=== PATIENT | female | born 1960 | race Caucasian/White ===

== ENCOUNTER 2018-02-03 00:11 | Emergency (ER) | payer BC, SELFPAY ==
[2018-02-03 00:13] VITALS: BP 126/70; PULSE 70; RESP 36; TEMP 37; O2SAT 100; BMI 25.3
[2018-02-03 00:15] VITALS: O2SAT 100
[2018-02-03] MEDS: Albuterol 2.5 MG/3 ML VIAL.NEB. INHALATION (00:32)
[2018-02-03 00:33] VITALS: PULSE 66; RESP 16
[2018-02-03] MEDS: DiphenhydrAMINE 50 MG/ML Syringe 25 MG IV (00:46)
[2018-02-03] MEDS: MethylPREDNISolone 125 MG/2 ML Vial IV (00:46)
[2018-02-03] MEDS: LORazepam 2 MG/ML Syringe 0.5 MG IV (00:46)
--- NOTE | 2018-02-03 01:22 | ED.VISSUMM ---
- ER Visit Summary Date of Service: 02/03/18 Chief Complaint: [] Shortness of breath, seasonal allergies History of Present Illness: The patient is a 57 F [] complaining of acute shortness of breath secondary to seasonal allergies. Patient reports she frequently takes Kassie-D for seasonal allergies. She reports this year has been particularly difficult with her seasonal allergies. She reports drinking wine today which worsened her allergy symptoms. She is dyspneic during history and physical exam. She also appears slightly anxious. Denies chest pain. No other complaints at this time. Physical Examination: [] Afebrile, vital signs stable. Cardia vascular exam is regular rate and rhythm. Lungs are clear to auscultation. Abdomen is soft and nontender. Test Results: [] None. Emergency Department Course and Treatment: [] Patient received intravenous fluids, Ativan, Benadryl, Solu-Medrol. Patient received 1 albuterol aerosol treatment. On serial exam she had significant improvement of her symptoms. She was encouraged to discontinue alcohol consumption during her seasonal allergy peak time of the year. Treatment Plan: [] Follow-up with PCP. Disposition: [] Discharge, stable. Impression: [] Seasonal allergies Dyspnea This note was generated with LinguaLeo dictation software. It may contain incorrect words, spelling, and punctuation that were not noted in review of the chart prior to signing ED Disposition - Plan for ED Patient: Chief Complaint: Shortness of Breath Referrals: Facundo Quinones MD [Primary Care Provider] -
--- NOTE | 2018-02-03 01:25 | ED.DEP ---
ED Disposition - Plan for ED Patient: Disposition: Home or Assisted Living Chief Complaint: Shortness of Breath Instructions: ED Reactive Airway Disease, ED Allergy Seasonal Referrals: Facundo Quinones MD [Primary Care Provider] -
[2018-02-03 01:31] VITALS: BP 119/74; PULSE 72; RESP 18; O2SAT 95
--- NOTE | 2018-02-03 01:32 | ED.RN ---
IV DC'ED, CATHETER INTACT, SMALL GAUZE DRESSING PLACED. DISCHARGE INSTRUCTIONS GIVEN TO AND REVIEWED WITH PATIENT, PATIENT DENIES QUESTIONS OR CONCERNS AND VOICES UNDERSTANDING OF DISCHARGE INSTRUCTIONS. PT AMBULATES OUT OF ROOM WITHOUT DIFFICULTY.
== END 2018-02-03 01:33 | disposition home or self-care (01) ==
PROVIDERS: Emergency Provider Emergency Medicine; Family Provider Family Medicine; PCP Family Medicine
DX: J30.2 Other seasonal allergic rhinitis (principal); R06.00 Dyspnea, unspecified
CPT/HCPCS: 94640; 96361; 96374; 96375; 99282; J7040; A4216

== ENCOUNTER 2022-07-03 17:19 | Emergency (ER) | payer BC, SELFPAY ==
[2022-07-03 17:20] VITALS: BP 107/71; PULSE 78; RESP 16; TEMP 36.9; O2SAT 99; BMI 23.8
--- NOTE | 2022-07-03 18:16 | EX.ED.VIS.EY ---
HPI History of Present Illness Chief Complaint: Eye Problem Narrative Narrative: 61-year-old female presenting with right sided cheek pain and pain above her right eye on her upper eyelid. She states this started yesterday. She went to her primary care physician to have this evaluated and she was sent to the emergency room. She says that her vision seemed a little bit off in the right eye. She does not have significant pain in her eye. She is noted no tearing or redness. She states her eye does feel irritated mildly and she has been trying not to rub her eye and does not believe she has. She is a noncontact wearer. No trauma to the eye that she knows of. [facility] Medical History Arthritis Hay fever Knee pain Severe headache Shoulder pain Home Medications erythromycin 5 mg/gram (0.5 %) eye ointment 1 applic RIGHT EYE TID #3.5 grams 07/03/22 [Rx Last Taken Unknown] fexofenadine 60 mg-pseudoephedrine ER 120 mg tablet,ext.release,12 hr (Kassie-D 12 Hour) 1 tab PO DAILY 07/03/22 [History Last Taken Unknown] Allergy/AdvReac Type Severity Reaction Status Date / Time acetaminophen [From Percocet] Allergy Mild Unknown Verified 07/03/22 17:19 estrogens, conjugated Allergy Mild Unknown Verified 07/03/22 17:19 naproxen [From Aleve] Allergy Mild Unknown Verified 07/03/22 17:19 oxycodone [From Percocet] Allergy Mild Unknown Verified 07/03/22 17:19 pseudoephedrine Allergy Mild Unknown Verified 07/03/22 17:19 [From Sudafed] Surgical History History of hysterectomy Hx of tubal ligation Social History Smoking Status: Former smoker ROS ROS ED Eyes Eyes: Reports blurry vision right ENT ENT ED: Denies rhinorrhea or sore throat Cardiovascular Cardiovascular: Denies chest pain or palpitations Respiratory/Chest Respiratory/Chest: Denies cough or dyspnea Gastrointestinal Gastrointestinal: Denies abdominal pain or constipation Genitourinary Genitourinary ED: Denies dysuria or hematuria Musculoskeletal Musculoskeletal: Denies arthralgias or back pain Integumentary Denies abscess or Abrasions Neurologic Neurologic: Denies headache(s) or paresthesias Psychiatric Psychiatric: Denies anxiety or depression EXAM Physical Exam Const Vital Signs: 07/03/22 17:20 Temperature 98.4 F Temperature Source Temporal Pulse Rate 78 Respiratory Rate 16 Blood Pressure 107/71 Blood Pressure Mean 83 Pulse Ox 99 Oxygen Delivery Method Room Air Positive well nourished General Appearance ED: NAD HEENT atraumatic Eyes PERRL and EOMs intact bilaterally General Eye ED: Yes normal appearance of both eyes and normal light reflex Eyelid: eyelids abnormal right upper eyelid Conjunctiva: conjunctiva normal Sclera: sclera normal Cornea: cornea abnormal Positive for right Cornea - Right Eye: Positive for abrasion and fluorescein used Pupil: PERRL Neck no lymphadenopathy Resp normal respiratory effort Cardio regular rate and regular rhythm GI non-tender Neuro oriented x3, CN's II-XII intact bilaterally and moves all extremities Sensorium / Orientation: alert and oriented to person Motor Exam: strength 5/5 throughout Skin no wounds MDM MDM MDM Narrative Medical decision making narrative: 61-year-old female presenting with right upper eyelid swelling and right cheek swelling. She states that its mostly tender in the right cheek. She states her vision is a little bit off in the right eye. She has a doctor's appointment for eye exam in 2 weeks which is scheduled. She states he saw her primary care provider who sent her to the emergency room out of concern that she might have an infection behind her eye. She has normal extraocular motion and no pain with motion. She does not have any redness of the eye, drainage, crusting of the eyelids. The cheek is mildly tender. The swelling over the eyelid on the upper on the right is nontender. Patient was examined with tetracaine for seen under slit-lamp. There is a corneal abrasion extending over the inferior aspect of the cornea from the 3:00 to the 8 o'clock position. Does not cover the midline. Visual acuities 20/25 OD, 20/25 OS. Patient was treated for corneal abrasion with erythromycin ophthalmic. She states she has appointment with her college or university faculty member upcoming. Return precautions were discussed. Impression: 1. Corneal abrasion 2. Right upper eyelid swelling 3. Right lower eyelid swelling Lab Data Attestation: I reviewed the patient's lab results. Discharge Plan Triage Chief Complaint: Eye Problem ED Provider: Braulio Doshi Dx/Rx/DC Orders Instructions: ED Corneal Abrasion Prescriptions: New erythromycin 5 mg/gram (0.5 %) ointment 1 applic RIGHT EYE TID Qty: 3.5 0RF No Action fexofenadine-pseudoephedrine [Kassie-D 12 Hour] 60-120 mg tablet extended release 12 hr 1 tab PO DAILY Label Comments: TAKE 1 TABLET BY MOUTH DAILY Primary Care Provider: Facundo Quinones Referrals: Facundo Quinones MD [Primary Care Provider] - Disposition Disposition: Home, Self Care
[2022-07-03] MEDS: Erythromycin Base 1 OPTH.TUBE 1 APPLIC RIGHT EYE (19:53)
[2022-07-03] MEDS: Fluorescein 1 MG STRIP 1 STRIP RIGHT EYE (19:54)
[2022-07-03] MEDS: Tetracaine 0.5% Ophthalmic Bottle 1 DRP RIGHT EYE (19:54)
== END 2022-07-03 19:54 | disposition home or self-care (01) ==
PROVIDERS: Emergency Provider Student in an Organized Health Care Education/Training Program; PCP Family Medicine; Visit Provider Student in an Organized Health Care Education/Training Program
DX: S05.01XA Injury of conjunctiva and corneal abrasion without foreign body, right eye, initial encounter (principal); H57.11 Ocular pain, right eye; H53.8 Other visual disturbances; Z87.891 Personal history of nicotine dependence; X58.XXXA Exposure to other specified factors, initial encounter
CPT/HCPCS: 99283

== ENCOUNTER 2024-03-14 14:03 | Emergency (ER) | payer BC, SELFPAY ==
[2024-03-14 14:03] VITALS: BP 126/63; PULSE 67; RESP 16; TEMP 35.6; O2SAT 98
--- NOTE | 2024-03-14 14:27 | EKG12_ITS ---
Test Reason : DIZZY Blood Pressure : / mmHG Vent. Rate : 059 BPM Atrial Rate : 000 BPM P-R Int : 000 ms QRS Dur : 078 ms QT Int : 448 ms P-R-T Axes : 000 075 037 degrees QTc Int : 443 ms Sinus bradycardia Nonspecific ST and T wave abnormality Abnormal ECG Confirmed by PINKY LEON, SANTO ([id number]), web editor PRISCILLA ROBERTS ([id number]) on 03/19/2024 10:49:02 A M Referred By: Confirmed By:MARIIA VANCE MD
--- NOTE | 2024-03-14 14:31 | CT_ITS ---
INDICATION: dizziness EXAMINATION: CT BRAIN - CT Head or Brain W/O Contrast Injection TECHNIQUE: Multiple axial images were obtained of the head without intravenous contrast. The protocol utilizes one or more of the following dose reduction techniques: automated exposure control, adjustment of mA and/or kV according to patient size,and/or use of iterative reconstruction technique. IV Contrast dosage and agent: None. RADIATION DOSAGE (If Supplied By Facility): CTDIvol = ( 44.99 ) mGy, DLP = ( 812.98 ) mGycm COMPARISON: No relevant prior comparison study available FINDINGS: BRAIN PARENCHYMA: No intra- or extra-axial hemorrhage. No evidence of acute infarct. No intracranial mass or mass effect. There is preservation of the mario/white matter interface. Posterior fossa structures are unremarkable. CSF SPACES: Appropriate for age. No hydrocephalus. Basal cisterns are patent. CALVARIUM, SKULL BASE, PARANASAL SINUSES AND MASTOID AIR CELLS: Clear. No discrete lytic or blastic abnormalities. ORBITS: Both globes, extraocular muscles, optic nerves and retrobulbar fat appear unremarkable. ASPECTS Score for Acute Strokes: 10 CT/Brain/Head without Contrast IMPRESSION: No acute intracranial process. Electronically Signed: Rosa Ragsdale MD at 15:32 EDT ,
--- NOTE | 2024-03-14 14:34 | EDS_ITS ---
HPI <LUPE Martinez - Last Filed: 03/14/24 18:13> History of Present Illness Chief Complaint: Nausea/Vomiting/Diarrhea Narrative Narrative: Patient is a 63-year-old female with no significant medical history who presents to the emergency department for 1 day of dizziness, feeling like her head is swirling, nausea and vomiting and feeling unsteady when she is getting around. Patient states she has had multiple episodes of vomiting. She is having pain to her back and chest from the vomiting. She does not understand why she cannot open her eyes, this is never happened to her before. She denies any fever or chills. Denies any blood in her vomit or stool. Here with her for evaluation. PFSH <LUPE Martinez - Last Filed: 03/14/24 18:13> [facility] Medical History Arthritis Hay fever Knee pain Severe headache Shoulder pain Home Medications ?Medication ?Instructions ?Recorded ?Last Taken ?Type fexofenadine 60 mg-pseudoephedrine 1 tab PO DAILY 07/03/22 Unknown History ER 120 mg tablet,ext.release,12 hr (Kassie-D 12 Hour) diazepam 5 mg tablet (Valium) 5 mg PO TID PRN sedation #10 tabs 03/14/24 Unknown Rx ondansetron 4 mg disintegrating 4 mg PO Q8H PRN PRN Nausea #10 tabs 03/14/24 Unknown Rx tablet ondansetron 4 mg disintegrating 4 mg PO Q8H PRN PRN Nausea #10 tabs 03/14/24 Unknown Rx tablet Allergy/AdvReac Type Severity Reaction Status Date / Time acetaminophen (From Percocet) Allergy Mild Unknown Verified 03/14/24 14:06 estrogens, conjugated Allergy Mild Unknown Verified 03/14/24 14:06 naproxen (From Aleve) Allergy Mild Unknown Verified 03/14/24 14:06 oxycodone (From Percocet) Allergy Mild Unknown Verified 03/14/24 14:06 pseudoephedrine (From Allergy Mild Unknown Verified 03/14/24 14:06 Sudafed) Surgical History History of hysterectomy Hx of tubal ligation Social History Smoking Status: Former smoker ROS <Alban IraHUI saenz-C - Last Filed: 03/14/24 18:13> ROS ED ROS Narrative Constitutional: Negative for fever, chills, weight loss, weakness Eyes: Negative for vision loss, vision change, double vision ENT: Negative for any sore throat, ear pain, congestion Cardiovascular: Negative for any chest pain, tightness, palpitations Respiratory: Negative for any cough, sputum production, hemoptysis, dyspnea, dyspnea on exertion, orthopnea Gastrointestinal: Negative for any abdominal pain, diarrhea, constipation, blood in stool, blood in vomit. Positive for nausea and vomiting : Negative for any urinary frequency, dysuria, retention, blood in urine Muscle skeletal: Negative for any neck pain, back pain Neurological: Negative for any headache, syncope. Positive for dizziness Skin: Negative for any rashes, itching, abrasions, lacerations Psychiatric: Negative for any depression, anxiety, stress, suicidal ideation, homicidal ideation Hematologic: Negative for any excessive bruising, easy bleeding EXAM <LUPE Martinez - Last Filed: 03/14/24 18:13> Physical Exam Narrative Exam Narrative: Vital signs reviewed. HEET: Head normocephalic atraumatic, TMs clear bilaterally. Posterior pharynx is clear, moist mucous membranes. Nares clear bilaterally. Pupils are equal round reactive to light. Patient does have obvious nystagmus bilateral. Patient barely able to tolerate moving her eyes right and left. Neck: Supple with no lymphadenopathy or tenderness. No signs of meningismus. Cardiac: Regular rate and rhythm no murmurs gallops or rubs, equal peripheral pulses bilaterally. Respiratory: Lungs clear to auscultation bilaterally. No chest tenderness. Abdomen: Soft, nontender, nondistended. No abdominal bruit or pulsatile masses. No hepatosplenomegaly Extremities: No peripheral edema, no signs of gross trauma or deformity. Active full range of motion of all extremities. Neuro: Cranial nerves II through XII intact, no focal neurological deficits. Horizontal nystagmus, patient is improved with laying flat, eyes closed. NIH stroke scale 0. Skin: Clean dry and intact with no rash, purpura, petechiae, vesicles or pustules. Backs/flank: No CVA tenderness, no midline spinal tenderness, no deformity. Psych: Normal mood and affect. No SI, HI or acute psychosis. Const Vital Signs: 03/14/24 14:03 03/14/24 16:03 03/14/24 18:08 Temperature 96.1 F L 97.6 F L Temperature Source Temporal Oral Pulse Rate 67 58 L 72 Respiratory Rate 16 16 16 Blood Pressure 126/63 H 173/74 H 124/76 H Blood Pressure Mean 84 107 92 Pulse Ox 98 98 98 Oxygen Delivery Method Room Air Room Air Room Air 03/14/24 18:25 Temperature 97.5 F L Temperature Source Pulse Rate 82 Respiratory Rate 16 Blood Pressure 134/69 H Blood Pressure Mean 90 Pulse Ox 99 Oxygen Delivery Method <Dr. Rufus Cassidy DO - Last Filed: 03/14/24 18:32> Physical Exam Const Vital Signs: 03/14/24 14:03 03/14/24 16:03 03/14/24 18:08 Temperature 96.1 F L 97.6 F L Temperature Source Temporal Oral Pulse Rate 67 58 L 72 Respiratory Rate 16 16 16 Blood Pressure 126/63 H 173/74 H 124/76 H Blood Pressure Mean 84 107 92 Pulse Ox 98 98 98 Oxygen Delivery Method Room Air Room Air Room Air 03/14/24 18:25 Temperature 97.5 F L Temperature Source Pulse Rate 82 Respiratory Rate 16 Blood Pressure 134/69 H Blood Pressure Mean 90 Pulse Ox 99 Oxygen Delivery Method [facility] <LUPE Martinez - Last Filed: 03/14/24 18:13> [facility] Lab Data Labs: Laboratory Results - last 24 hr 03/14/24 14:23 WBC 11.3 H RBC 4.88 Hgb 15.0 Hct 44.8 MCV 91.8 MCH 30.7 MCHC 33.5 RDW Std Deviation 48.0 H RDW Coeff of Obed 14.3 Plt Count 383 MPV 10.0 Immature Gran % (Auto) 0.400 Neut % (Auto) 70.9 H Lymph % (Auto) 22.2 [place] % (Auto) 6.0 Eos % (Auto) 0.1 Baso % (Auto) 0.4 Absolute Neuts (auto) 8.1 H Absolute Lymphs (auto) 2.51 Nucleated RBC % 0 Sodium 136 Potassium 3.6 Chloride 105 Carbon Dioxide 24.0 Anion Gap 7 BUN 10 Creatinine 0.74 Est GFR (MDRD) Af Amer 102 Est GFR (MDRD) Non-Af 84 BUN/Creatinine Ratio 13.6 Glucose 124 H Calcium 10.3 H Total Bilirubin 0.60 AST 27 ALT 33 Alkaline Phosphatase 68 Total Protein 8.4 H Albumin 4.4 Globulin 4.0 Albumin/Globulin Ratio 1.1 Lipase 64 Radiography Diagnostic Testing: Clinical Impression(s) from Imaging Studies Brain CT 03/14/24 14:31 IMPRESSION: No acute intracranial process. Electronically Signed: Rosa Ragsdale MD at 15:32 EDT , EKG Sinus bradycardia: Attestation: I personally reviewed and interpreted this EKG as follows: Interpretation: Sinus Rhythm Comments: Sinus bradycardia, rate of 59 bpm, no ST elevation. Treatment and Re-Evaluation :: Differential diagnosis includes however is not limited to: Central vertigo, positional peripheral vertigo, CVA, intracranial bleeding Patient appears to be in mild distress secondary to vertigo, dizziness, room spinning like sensation. Vital signs are stable, patient nontoxic-appearing. Patient presents to the emergency department for worsening dizziness, nausea and vomiting. Patient will receive a CT scan of brain for intracranial hemorrhage, mass effect. Patient received basic laboratory values, EKG. Patient received IV fluids, Zofran, oral Valium. Patient will need to be reevaluated. All radiologic examinations were read, reviewed by the emergency department attending. From these reads, a plan of care will be put in place. Patient's CBC showed a slight leukocytosis white blood count 11.3, patient's chemistries show glucose of 124, lipase was negative. Patient CT scan of the brain showed no acute intracranial process. Patient reevaluation was feeling better, she is able to open her eyes, she states that her nausea was improved. She still felt slightly dizzy. Patient will need to get up and ambulate to see how she does. Patient who was redosed with 2.5 mg of Valium. Patient rested for another 45 minutes to 1 hour. On reevaluation, the patient is able to sit up, ambulatory, patient feels much improved. I did speak with the patient regarding admission however the patient does feel confident that she can go home, and she will return here for any worsening symptoms. Patient will be given Valium for home as well as Zofran. She will follow-up outpatient. Instructed to return here for any worsening symptoms. Patient stable for discharge. <Dr. Rufus Cassidy, DO - Last Filed: 03/14/24 18:32> [facility] Narrative Medical decision making narrative: I have personally performed a face to face assessment of the patient and have reviewed the THALIA Note. I performed a substantive portion of the visit including all aspects of the following. My feliz findings include: History: Patient presents with dizziness, nausea, vomiting that began yesterday. Patient states it began rather suddenly. Patient states it has been constant since yesterday. Patient states she feels off balance. Patient states she feels like the floor is moving. Patient states she feels like her head is sp inning. Patient states it is worse when she sits up and better when she lays down. Patient denies any hearing changes or tinnitus. Patient does admit to mild headache. Patient denies any hematemesis or coffee-ground emesis. Patient denies any diarrhea. Exam: Vital signs are stable. Patient is afebrile. Patient is in no acute distress. Pupils are equal, round, and reactive to light bilaterally. Extraocular muscles are intact. There is nystagmus with left lateral gaze. Oral mucosa is pink and moist. Neck is supple. Trachea midline. There is no JVD. Heart was regular rate and rhythm. Lungs are clear and equal bilaterally. Abdomen is soft. Bowel sounds are normal. There is no tenderness. Cranial nerves II through XII are intact. Strength is 5/5 bilaterally in the upper and lower extremities. There are no sensory deficits noted. Vipul-Hallpike maneuver was positive. Medical Decision Making: Differential diagnosis includes vertigo, labyrinthitis, intracranial bleeding, stroke, electrolyte abnormality, dehydration, and viral illness. CBC will be obtained to assess for leukocytosis and anemia. Comprehensive metabolic profile will be obtained to assess for hepatic function, renal function, and electrolyte abnormality. Lipase will be obtained to assess for pancreatitis. CT scan of the brain will be obtained to assess for intracranial bleeding and stroke. EKG will be obtained to assess for cardiac dysrhythmia and cardiac ischemia. Patient was given a dose of Zofran here. Patient was given a dose of Valium. Patient was given IV fluids. Patient was feeling somewhat better on reevaluation. Patient was given a repeat dose of Valium and Zofran. CBC was reviewed. There is a slight leukocytosis of 11.3. The remainder is within normal limits. Comprehensive metabolic profile was reviewed and was essentially within normal limits. Lipase was reviewed and was normal at 64. EKG was obtained. On my independent interpretation, it shows a sinus bradycardia with a rate of 59. [place] interval, QRS interval, and QTc intervals are within normal limits. [place] was normal. There are nonspecific ST-T wave changes. This was unchanged compared to previous EKG. CT scan of the brain was obtained. There is no acute intracranial abnormality. This was interpreted by the radiologist and was also independently reviewed by myself. Patient was feeling better on reevaluation. Patient was able to stand and ambulate. Patient was instructed to follow-up with her primary care physician in 5 to 7 days. Patient is given a prescription for evaluation. Patient was instructed to return if worse in any way. Patient understood and was agreeable with plan. All questions were answered. Lab Data Attestation: I reviewed the patient's lab results. Labs: Laboratory Results - last 24 hr 03/14/24 14:23 WBC 11.3 H RBC 4.88 Hgb 15.0 Hct 44.8 MCV 91.8 MCH 30.7 MCHC 33.5 RDW Std Deviation 48.0 H RDW Coeff of Obed 14.3 Plt Count 383 MPV 10.0 Immature Gran % (Auto) 0.400 Neut % (Auto) 70.9 H Lymph % (Auto) 22.2 [place] % (Auto) 6.0 Eos % (Auto) 0.1 Baso % (Auto) 0.4 Absolute Neuts (auto) 8.1 H Absolute Lymphs (auto) 2.51 Nucleated RBC % 0 Sodium 136 Potassium 3.6 Chloride 105 Carbon Dioxide 24.0 Anion Gap 7 BUN 10 Creatinine 0.74 Est GFR (MDRD) Af Amer 102 Est GFR (MDRD) Non-Af 84 BUN/Creatinine Ratio 13.6 Glucose 124 H Calcium 10.3 H Total Bilirubin 0.60 AST 27 ALT 33 Alkaline Phosphatase 68 Total Protein 8.4 H Albumin 4.4 Globulin 4.0 Albumin/Globulin Ratio 1.1 Lipase 64 Radiography Diagnostic Testing: Clinical Impression(s) from Imaging Studies Brain CT 03/14/24 14:31 IMPRESSION: No acute intracranial process. Electronically Signed: Rosa Ragsdale MD at 15:32 EDT , Discharge Plan Triage Chief Complaint: Nausea/Vomiting/Diarrhea ED Midlevel Provider: Alban Bolanos ED Provider: Rufus Cassidy Dx/Rx/DC Orders Clinical Impression: Peripheral positional vertigo, Nausea & vomiting Instructions: ED BPV Vertigo Prescriptions: New ondansetron 4 mg tablet,disintegrating 4 mg PO Q8H PRN PRN (Reason: Nausea) Qty: 10 0RF diazepam [Valium] 5 mg tablet 5 mg PO TID PRN (Reason: sedation) Qty: 10 0RF ondansetron 4 mg tablet,disintegrating 4 mg PO Q8H PRN PRN (Reason: Nausea) Qty: 10 0RF Discontinued erythromycin 5 mg/gram (0.5 %) ointment 1 applic RIGHT EYE TID Qty: 3.5 0RF No Action fexofenadine-pseudoephedrine [Kassie-D 12 Hour] 60-120 mg tablet extended release 12 hr 1 tab PO DAILY Patient Comments: TAKE 1 TABLET BY MOUTH DAILY Primary Care Provider: Facundo Quinones Referrals: Facundo Quinones MD [Primary Care Provider] - Activity Restrictions/Additional Instructions: The Valium and nausea medicine is as needed. You should have improvement in 24 to 48 hours. Please return for worsening dizziness, nausea or vomiting. Print Language: Micronesian Disposition Disposition: Home, Self Care
[2024-03-14 14:45] LABS: Absolute Lymphocyte Count 2.51 X10^3/uL (0.83-4.51); Absolute Neutrophil Count 8.1 X10^3/uL (2.0-7.7); Basophil# 0.04 X10^3/uL; Basophil% 0.4 % (0-1); Eosinophil# 0.01 X10^3/uL; Eosinophils% 0.1 % (0-5); Hematocrit 44.8 % (37-47); Lymphocyte # 2.51 X10^3/ul (0.83-4.51); Lymphocyte % 22.2 % (19-41); Mean Corp Hgb Conc 33.5 g/dL (32-36); Mean Corpuscular Hgb 30.7 pg (27.0-32.0); Mean Corpuscular Volume 91.8 fL (81-99); Monocyte# 0.68 X10^3/uL; NRBC Flagged by Analyzer 0 % (0-5); Neutrophil # 8.05 X10^3/uL (2.7-7.7); Neutrophil % 70.9 % (47-70); Platelet Count 383 K/mm3 (150-450); RBC Distribution Width CV 14.3 % (11.6-14.6); Red Blood Count 4.88 M/mm3 (4.2-5.4); White Blood Count 11.3 K/mm3 (4.4-11.0)
[2024-03-14] MEDS: Ondansetron 4 MG/2 ML Vial IV (14:57)
[2024-03-14] MEDS: diazePAM 5 MG Tablet PO (14:57)
[2024-03-14] MEDS: 0.9% Normal Saline (1000mL) 1,000 ML 999 ML IV (14:57)
[2024-03-14 15:06] LABS: ALB/GLOB Ratio 1.1 RATIO (0.9-2.4); AST(SGOT) 27 U/L (15-37); Alanine Aminotransfer ALT/SGPT 33 U/L (13-56); Albumin, Serum 4.4 g/dL (3.2-5.0); Alkaline Phosphatase 68 U/L (45-117); Anion Gap 7 (5-15); BUN 10 mg/dL (7-18); BUN/Creat Ratio 13.6 RATIO (10-20); Calcium,Total 10.3 mg/dL (8.5-10.1); Chloride 105 mmol/L (98-107); Creatinine, Serum 0.74 mg/dL (0.55-1.02); EST Glomerular Filtration Rate 84 mL/min (>60); Est Glom Filt Rate - Afr Amer 102 mL/min (>60); Glucose 124 mg/dL (74-106); Lipase 64 U/L (13-75); Potassium 3.6 mmol/L (3.5-5.1); Protein, Total 8.4 g/dL (6.4-8.2); Sodium Level 136 mmol/L (136-145)
[2024-03-14 16:03] VITALS: BP 173/74; PULSE 58; RESP 16; O2SAT 98
[2024-03-14 16:31] VITALS: O2SAT 98
[2024-03-14] MEDS: diazePAM 5 MG Tablet 2.5 MG PO (17:11)
[2024-03-14 18:08] VITALS: BP 124/76; PULSE 72; RESP 16; TEMP 36.4; O2SAT 98
[2024-03-14] MEDS: Ondansetron ODT 4 MG Tablet PO (18:18)
[2024-03-14 18:25] VITALS: BP 134/69; PULSE 82; RESP 16; TEMP 36.4; O2SAT 99
== END 2024-03-14 18:31 | disposition home or self-care (01) ==
PROVIDERS: Nurse Practitioner; Emergency Provider Emergency Medicine; PCP Family Medicine; Visit Provider Emergency Medicine
DX: H81.10 Benign paroxysmal vertigo, unspecified ear (principal); Z87.891 Personal history of nicotine dependence; R19.7 Diarrhea, unspecified; R51.9 Headache, unspecified; M54.9 Dorsalgia, unspecified
CPT/HCPCS: 70450; 80053; 83690; 85025; 93005; 96361; 96374; 99283; A4216; J2405